=== PATIENT | female | born 1945 | race Caucasian/White ===

== ENCOUNTER 2023-10-31 22:04 | Emergency (ER) | payer MEDICARE, OTHER ==
[~2023-10-31] VITALS: Ht 157.5 cm; Wt 70.3 kg
[2023-10-31 22:13] VITALS: TEMP 99
[2023-10-31 23:07] LABS: BASOPHILS % (AUTO) 0.4 % (0.0-2.0); EOSINOPHILS % (AUTO) 0.2 % (0.0-6.0); HEMATOCRIT 37 % (33-45); HEMOGLOBIN 12.4 g/dL (11.5-14.8); LYMPHOCYTES # (AUTO) 0.9 K/uL (0.8-4.8); LYMPHOCYTES % (AUTO) 14.2 % (20.0-44.0); MEAN CORPUSCULAR HEMOGLOBIN 28 PG (26.0-33.0); MEAN CORPUSCULAR HGB CONC 34 g/dl (31.0-36.0); MEAN CORPUSCULAR VOLUME 84 fL (82-100); MONOCYTES # (AUTO) 0.4 K/uL (0.1-1.30); MONOCYTES % (AUTO) 6.6 % (2.0-12.0); NEUTROPHILS # (AUTO) 5.2 K/uL (1.8-8.9); NEUTROPHILS % (AUTO) 78.6 % (43.0-81.0); PLATELET COUNT (AUTO) 228 K/uL (150-450); RED CELL DISTRIBUTION WIDTH 14.3 % (11.5-15.0); WHITE BLOOD COUNT (AUTO) 6.6 K/uL (4.3-11.0)
[2023-10-31 23:20] LABS: PARTIAL THROMBOPLASTIN TIME 27.3 SEC (24.3-34.3); PROTHROMBIN TIME 10.6 SECS (9.2-11.1)
[2023-10-31 23:22] LABS: CALCIUM, SERUM 9.1 mg/dL (8.5-10.1); CARBON DIOXIDE 28 mmol/L (21-32); CHLORIDE 102 mmol/L (98-107); CREATININE 0.6 mg/dL (0.6-1.3); GLUCOSE 100 mg/dL (74-106); POTASSIUM 3.6 mmol/L (3.5-5.1); SODIUM SERUM 141 mmol/L (136-145); UREA NITROGEN, BLOOD 14 mg/dL (7-18)
[2023-10-31 23:32] LABS: ALANINE AMINOTRANSFERASE 27 U/L (12-78); ALBUMIN 3.6 g/dL (3.4-5.0); ALKALINE PHOSPHATASE 86 U/L (46-116); ASPARTATE AMINOTRANSFERASE 19 U/L (15-37); BILIRUBIN,DIRECT 0.1 mg/dL (0.0-0.2); BILIRUBIN,TOTAL 0.6 mg/dL (0.2-1.0); NT-PRO BNP 66 pg/mL (0-125); TOTAL PROTEIN, SERUM 7.1 g/dL (6.4-8.2)
[2023-10-31 23:51] VITALS: BP 125/69; O2SAT 94
[2023-11-01] MEDS ORDERED: MAGNESIUM HYDROXIDE 30 ML UDC PO PRN (00:30)
[2023-11-01] MEDS ORDERED: Z GUARD REMEDY 4 OZ OINT TP PRN (00:30)
[2023-11-01] MEDS ORDERED: ONDANSETRON HCL/PF 4 MG/2 ML VIAL IVP PRN (00:30)
[2023-11-01] MEDS ORDERED: ZOLPIDEM TARTRATE 5 MG TABLET PO PRN (00:30)
[2023-11-01] MEDS ORDERED: MAG HYDROX/AL HYDROX/SIMETH 30 ML UDC PO PRN (00:30)
[2023-11-01] MEDS ORDERED: ACETAMINOPHEN 325 MG TABLET PO PRN (00:30)
[2023-11-01] MEDS ORDERED: ENOXAPARIN SODIUM 40 MG/0.4 ML DISP.SYRIN SQ SCH (00:30)
[2023-11-01 06:57] LABS: ABG BASE EXCESS 4.2 mmol/L; ABG OXYGEN SATURATION 95.6 % (92.0-98.5); ABG PCO2 38.9 mmHg (35.0-45.0); ABG PH 7.475 (7.350-7.450); ABG PO2 80.5 mmHg (75.0-100.0); ABG TOTAL HEMOGLOBIN 12.9 G/dL (12.0-16.0); COHb 0.3 % (0.5-1.5); MetHb 0.3 % (0.0-1.5); SITE, ABG Right Radial; VENT MODE, BG Nasal cannula
[2023-11-01] MEDS ORDERED: PANTOPRAZOLE 40 MG TABLET.DR PO SCH (07:30)
== END 2023-11-01 01:37 | disposition left against medical advice (07) ==
LOC: ER 22:12
DX: U07.1 COVID-19 (principal); R09.02 Hypoxemia; R94.31 Abnormal electrocardiogram [ECG] [EKG]; J45.909 Unspecified asthma, uncomplicated; K21.9 Gastro-esophageal reflux disease without esophagitis
CPT/HCPCS: 36415; 36600; 71045-TC; 80048-TC; 80076-TC; 82803-TC; 83605-TC; 83880; 84484-TC; 85025-TC; 85730-TC; 87040-TC